=== PATIENT | male | born 1990 | race Caucasian/White ===

== ENCOUNTER 2021-06-19 06:00 | Outpatient (CLI) | payer BC, SELFPAY ==
[2021-06-19 11:20] VITALS: PULSE 120; RESP 40; TEMP 36.9
[2021-06-19 11:30] VITALS: PULSE 120; RESP 40; TEMP 36.9
== END 2021-06-19 06:01 | disposition home or self-care (01) ==
LOC: OPOB 02-15 16:00
PROVIDERS: PCP Nurse Practitioner Family; Visit Provider Pediatrics
DX: R17 Unspecified jaundice (principal)
CPT/HCPCS: 36416

== ENCOUNTER 2022-02-21 19:53 | Emergency (ER) | payer BC, SELFPAY ==
[2022-02-21 20:01] VITALS: BP 146/107; PULSE 106; RESP 14; TEMP 37.2; O2SAT 97; BMI 30.9
--- NOTE | 2022-02-21 20:09 | W.ED.CHESTPA ---
HPI - Chest Pain General: Chief Complaint: Chest Pain Stated Complaint: high blood pressure chest pains Time Seen by Provider: 02/21/22 19:55 PFSH ED PFSH: Medical History (Updated 03/15/21 @ 18:30 by Filippo Bradford MD) Herpes simplex Social History Smoking and tobacco status: never smoked Course Vital Signs: Vital signs: Vital Signs Temperature 98.9 F 02/21/22 20:01 Pulse Rate 106 H 02/21/22 20:01 Respiratory Rate 14 02/21/22 20:01 Blood Pressure 146/107 02/21/22 20:01 Pulse Oximetry 97 02/21/22 20:01 Discharge Plan Discharge Condition: Stable Prescriptions: No Action lisinopril 10 mg tablet 10 mg PO DAILY 0RF Lidocaine Viscous 2 % solution 1 applic mucous membrane Q3H Qty: 100 0RF Referrals: Remea Alan FNP [Primary Care Provider] - Coding Level of Care Code ED [employer] 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
--- NOTE | 2022-02-21 20:10 | ED_ITS ---
HPI - Chest Pain General: Chief Complaint: Chest Pain Stated Complaint: high blood pressure chest pains Time Seen by Provider: 02/21/22 19:55 History of Present Illness: 31-year-old presents with chest pain. States he also had an elevated blood pressure earlier. Reports chest pain is achy central and nonradiating. Denies any nausea or vomiting. Does report tachycardia earlier. Denies any lower extremity pain or swelling. Denies fevers or chills. Denies any radiation to the back. Review of Systems Narrative: - CONSTITUTIONAL: Denies weight loss, fever and chills. - HEENT: Denies changes in vision and hearing. - RESPIRATORY: Denies SOB and cough. - CV: As above - GI: Denies abdominal pain, nausea, vomiting and diarrhea. - : Denies dysuria and urinary frequency. - MSK: Denies myalgia and joint pain. - SKIN: Denies rash and pruritus. - NEUROLOGICAL: Denies headache, weakness, numbness and syncope. - PSYCHIATRIC: Denies suicidal ideation [facility] ED PFS: Medical History (Updated 02/21/22 @ 21:53 by Enoc Coronado MD) Herpes simplex Social History Smoking and tobacco status: never smoked Physical Exam Narrative: EXAM NARRATIVE: - GENERAL: Alert and oriented x 3. No acute distress. Well-nourished. - EYES: EOMI. Anicteric. - HENT: Atraumatic, no C-spine tenderness. Moist mucous membranes. No scleral icterus. No cervical lymphadenopathy. - LUNGS: Clear to auscultation bilaterally. No accessory muscle use. Equal lung sounds bilaterally. No respiratory distress. - CARDIOVASCULAR: Regular tachycardia. No murmur. No JVD. - ABDOMEN: Soft, non-tender and non-distended. Negative CVA tenderness bilaterally, no rebound or guarding, negative Amin sign. No palpable masses. - EXTREMITIES: No edema. Non-tender. - SKIN: No rashes or lesions. Warm. - NEUROLOGIC: No meningismus or focal neurological deficits. CN II-XII grossly intact. - PSYCHIATRIC: Cooperative. Appropriate mood and affect. Course Vital Signs: Vital signs: Vital Signs Temperature 98.9 F 02/21/22 20:01 Pulse Rate 80 02/21/22 21:18 Respiratory Rate 16 02/21/22 21:18 Blood Pressure 142/91 02/21/22 21:18 Pulse Oximetry 94 05/29/22 21:18 MDM - Chest Pain Medical Decision Making [id number] presents with chest pain since yesterday. Physical exam unremarkable. EKG and troponin not revealing sign of acute ischemia or acute abnormality. Initially mildly tachycardic but improved without intervention. D-dimer is negative. X-ray does not reveal pneumothorax or consolidation. Remainder of lab work unremarkable. At this time I believe patient would be safe for discharge and outpatient follow-up. Return precautions provided. Plan was reviewed with the patient who expressed understanding. Questions answered. Patient will follow up with PCP. Patient discharged in stable condition. Lab Data : 02/21/22 20:05 02/21/22 21:15 Radiology Impressions Chest X-Ray 02/21/22 20:10 IMPRESSION: No acute findings. Laboratory Results WBC 10.1 10^3/uL (4.0-10.0) H 02/21/22 20:05 RBC 5.88 10^6/uL (4.1-5.3) H 02/21/22 20:05 Hgb 16.4 g/dL (11.7-16.6) 02/21/22 20:05 Hct 47.2 % (42.0-52.0) 02/21/22 20:05 MCV 80.3 fl (80-94) 02/21/22 20:05 MCH 27.9 pg (28.0-34.0) L 02/21/22 20:05 MCHC 34.7 g/dL (30.0-36.0) 02/21/22 20:05 RDW 12.5 % (12.1-15.1) 02/21/22 20:05 Plt Count 326 10^3/cmm (130-400) 02/21/22 20:05 MPV 8.9 fL (7.4-10.4) 02/21/22 20:05 Neut % (Auto) 53.2 % 02/21/22 20:05 Lymph % (Auto) 33.2 % 02/21/22 20:05 Mcdonough % (Auto) 6.5 % 02/21/22 20:05 Eos % (Auto) 6.1 % 02/21/22 20:05 Baso % (Auto) 0.7 % 02/21/22 20:05 Neut # (Auto) 5.36 10^3/uL (1.8-7.7) 02/21/22 20:05 Lymph # (Auto) 3.3 10^3/uL (0.8-4.8) 02/21/22 20:05 Mcdonough # (Auto) 0.7 10^3/uL (0.2-0.9) 02/21/22 20:05 Eos # (Auto) 0.6 10^3/uL (0.0-0.8) 02/21/22 20:05 Baso # (Auto) 0.1 10^3/uL (0.0-0.1) 02/21/22 20:05 Nucleated RBC % (auto) 0 % 02/21/22 20:05 Nucleated RBCs # 0.0 /100WBC 02/21/22 20:05 D-Dimer 0.34 ug/mIFEU (0-0.59) 02/21/22 20:05 Sodium 138 mmol/L (136-145) 02/21/22 21:15 Potassium 3.7 mmol/L (3.5-5.1) 02/21/22 21:15 Chloride 101 mmol/L (98-107) 02/21/22 21:15 Carbon Dioxide 28 mmol/L (22-29) 02/21/22 21:15 Anion Gap 12.7 (5-19) 02/21/22 21:15 BUN 15 mg/dL (6-20) 02/21/22 21:15 Creatinine 0.9 mg/dL (0.7-1.2) 02/21/22 21:15 GFR Calculation 97.8 mL/min (90-130) 02/21/22 21:15 Glucose 89 mg/dL (65-115) 02/21/22 21:15 Calculated Osmolality 286 mOsm/kg (285-295) 02/21/22 21:15 Calcium 9.0 mg/dL (8.5-10.5) 02/21/22 21:15 Total Bilirubin 0.5 mg/dL (0.15-1.2) 02/21/22 21:15 AST 35 U/L (0-40) 02/21/22 21:15 ALT 66 U/L (0-41) H 02/21/22 21:15 Alkaline Phosphatase 94 IU/L (40-130) 02/21/22 21:15 Troponin T Baseline 6 ng/L (0-15) 02/21/22 20:30 Total Protein 6.9 g/dL (6.6-8.7) 02/21/22 21:15 Albumin 4.6 g/dL (3.5-5.2) 02/21/22 21:15 Globulin 2.3 g/dL (1.3-4.6) 02/21/22 21:15 Lipase 29 U/L (13-60) 02/21/22 21:15 EKG Data EKG 1: Other EKG comments: Sinus tachycardia, rate of 106, no sign of acute ischemia or other acute abnormality. Discharge Plan Discharge Patient Disposition: Home Clinical Impression: Chest pain Condition: Stable Prescriptions: No Action lisinopril 10 mg tablet 10 mg PO DAILY 0RF Lidocaine Viscous 2 % solution 1 applic mucous membrane Q3H Qty: 100 0RF Discharge Orders: Discharge ED (Routine); Ordered 02/21/22 Ordered By: Enoc Coronado Referrals: Reema Alan FNP [Primary Care Provider] - 1-3 days Patient Instructions: Chest Pain (ED), Opioid Safety Coding Level of Care Code ED Barrel Header for Chg Carolyn
--- NOTE | 2022-02-21 20:10 | XRR_ITS ---
PROCEDURE INFORMATION: Exam: XR Chest Exam date and time: 02/21/2022 8:21 PM Age: 31 years old Clinical indication: Sternal or substernal pain; Additional info: Cp TECHNIQUE: Imaging protocol: XR of the chest. Views: 1 view. COMPARISON: No relevant prior studies available. FINDINGS: Lungs: Unremarkable. No consolidation. Pleural spaces: Unremarkable. No pleural effusion. No pneumothorax. Heart/Mediastinum: Unremarkable. No cardiomegaly. Bones/joints: Unremarkable. XR/XR chest 1V portable [id number] IMPRESSION: No acute findings.
--- NOTE | 2022-02-21 20:10 | ECG_ITS ---
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 Measurements Intervals [place] Rate: 106 P: 62 GA: 152 QRS: 67 QRSD: 105 T: 31 QT: 324 QTc: 431 Interpretive Statements SINUS TACHYCARDIA No previous ECG available for comparison Electronically Signed On 02-22-2022 19:42:53 CDT by Wallace Michele M.D. [id number] f
[2022-02-21] MEDS: aspirin 81 mg Chew Tablet 324 MG PO (20:14)
[2022-02-21 20:20] LABS: Basophils # 0.1 10^3/uL (0.0-0.1); Basophils % 0.7 %; Eosinophils # 0.6 10^3/uL (0.0-0.8); Eosinophils % 6.1 %; Hematocrit 47.2 % (42.0-52.0); Hemoglobin 16.4 g/dL (11.7-16.6); Lymphocytes # 3.3 10^3/uL (0.8-4.8); Lymphocytes % 33.2 %; Mean Corpuscular HGB Conc 34.7 g/dL (30.0-36.0); Mean Corpuscular Hemoglobin 27.9 pg (28.0-34.0); Mean Corpuscular Volume 80.3 fl (80-94); Mean Platelet Volume 8.9 fL (7.4-10.4); Monocytes # 0.7 10^3/uL (0.2-0.9); Monocytes % 6.5 %; Neutrophils # 5.36 10^3/uL (1.8-7.7); Neutrophils % 53.2 %; Nucleated Red Blood Cells % 0 %; Platelet Count 326 10^3/cmm (130-400); Red Blood Count 5.88 10^6/uL (4.1-5.3); Red Cell Distribution Width 12.5 % (12.1-15.1); White Blood Count 10.1 10^3/uL (4.0-10.0)
[2022-02-21 20:27] LABS: D Dimer 0.34 ug/mIFEU (0-0.59)
[2022-02-21 20:37] VITALS: BP 133/90; PULSE 93; O2SAT 93
[2022-02-21 20:57] LABS: Troponin(5th) Baseline 6 ng/L (0-15)
[2022-02-21 21:18] VITALS: BP 142/91; PULSE 80; RESP 16; O2SAT 94
[2022-02-21 21:44] LABS: Alanine Aminotransferase 66 U/L (0-41); Albumin Level 4.6 g/dL (3.5-5.2); Alkaline Phosphatase 94 IU/L (40-130); Anion Gap 12.7 (5-19); Aspartate Amino Transferase 35 U/L (0-40); Blood Urea Nitrogen 15 mg/dL (6-20); Carbon Dioxide 28 mmol/L (22-29); Chloride 101 mmol/L (98-107); Globulin 2.3 g/dL (1.3-4.6); Glomerular Filtration Rate 97.8 mL/min (90-130); Glucose 89 mg/dL (65-115); Lipase 29 U/L (13-60); Osmolality Calculated 286 mOsm/kg (285-295); Potassium 3.7 mmol/L (3.5-5.1); Sodium 138 mmol/L (136-145); Total Bilirubin 0.5 mg/dL (0.15-1.2); Total Protein 6.9 g/dL (6.6-8.7)
[2022-02-21 22:19] VITALS: BP 135/83; PULSE 88; RESP 18; O2SAT 94
== END 2022-02-21 22:20 | disposition home or self-care (01) ==
PROVIDERS: Emergency Provider Emergency Medicine; PCP Nurse Practitioner Family
DX: R07.9 Chest pain, unspecified (principal); R00.0 Tachycardia, unspecified
CPT/HCPCS: 71045; 80053; 83690; 84484; 85025; 85378; 93005; 99284

== ENCOUNTER 2023-01-03 20:54 | Emergency (ER) | payer OTHER, BC, SELFPAY ==
[2023-01-03] VITALS (7 sets, daily range): BP systolic 110–134; BP diastolic 84–86; PULSE 83–91; RESP 16–18; TEMP 36.5; O2SAT 97–100
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
[2023-01-03] MEDS: morphine 4 mg/mL SDV 1 mL IVP (21:23)
[2023-01-03] MEDS: ondansetron 2 mg/ML SDV 2 mL 4 MG IVP (21:23)
[2023-01-03] MEDS: iohexol 350 mg/mL 500 mL Btl (per mL) IV (21:38)
--- NOTE | 2023-01-11 13:15 | DCPLANNER ---
online community manager called patient due to no primary care physician - patient declines at this time.
== END 2023-01-03 22:02 | disposition home or self-care (01) ==
PROVIDERS: Emergency Provider Emergency Medicine
DX: S30.811A Abrasion of abdominal wall, initial encounter (principal); V28.09XA Other motorcycle driver injured in noncollision transport accident in nontraffic accident, initial encounter
CPT/HCPCS: 74177; 96374; 96375; 99285; J2270; J2405; Q9967

== ENCOUNTER 2025-02-23 00:17 | Emergency (ER) | payer BC, SELFPAY ==
[2025-02-23 00:21] VITALS: BP 154/103; PULSE 96; RESP 16; TEMP 36.6; O2SAT 99; BMI 30.9
--- NOTE | 2025-02-23 00:42 | CTR_ITS ---
PROCEDURE INFORMATION: Exam: CT Head Without Contrast Exam date and time: 02/23/2025 12:56 AM Age: 34 years old Clinical indication: Pain; Headache; HORNE with dizziness; Additional info: Dizziness with mild confusion and HORNE TECHNIQUE: Imaging protocol: Computed tomography of the head without contrast. Radiation optimization: All CT scans at this facility use at least one of these dose optimization techniques: automated exposure control; mA and/or kV adjustment per patient size (includes targeted exams where dose is matched to clinical indication); or iterative reconstruction. COMPARISON: No relevant prior studies available. RADIATION DOSE METRICS: Total DLP (mGy-cm): 974.98 FINDINGS: Brain: There is no evidence of intracranial hemorrhage. No mass effect or midline shift. No territorial edema. Unremarkable white matter. Cerebral ventricles: The ventricles and sulci are appropriate for the patient's age. Paranasal sinuses: Nodular mucosal thickening of the bilateral frontal, bilateral ethmoid and sphenoid sinuses. There are some opacified ethmoid air cells. The maxillary sinuses are outside of the field of view. Mastoid air cells: The visualized mastoid air cells are well aerated. Bones: Unremarkable. No acute fracture. Soft tissues: Unremarkable. CT/CT head wo con* [id number] IMPRESSION: 1. No acute intracranial findings. 2. Paranasal sinus disease as above.
--- NOTE | 2025-02-23 00:42 | XRR_ITS ---
PROCEDURE INFORMATION: Exam: XR Chest Exam date and time: 02/23/2025 12:49 AM Age: 34 years old Clinical indication: Other: AMS; Additional info: Confusion TECHNIQUE: Imaging protocol: Radiologic exam of the chest. Views: 1 view. COMPARISON: CR XR chest 1V portable [id number] 21/02/2022 20:21 FINDINGS: Lungs: There is incomplete lung expansion and crowding of the vascular markings. There is no consolidation. Pleural spaces: No pleural effusion or pneumothorax. Heart/Mediastinum: The heart and mediastinum are normal in size. Bones/joints: Unremarkable. XR/XR chest 1V portable [id number] IMPRESSION: No acute findings.
--- NOTE | 2025-02-23 00:45 | ECG_ITS ---
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 Measurements Intervals [place] Rate: 103 P: 51 WY: 175 QRS: 41 QRSD: 106 T: 16 QT: 339 QTc: 445 Interpretive Statements SINUS TACHYCARDIA Compared to ECG 02/21/2022 20:01:46 No significant changes Electronically Signed On 02-26-2025 11:44:06 CDT by Wallace Michele M.D. [email or web address] [id number]
--- NOTE | 2025-02-23 00:48 | W.ED.NEUROSD ---
HPI - Neuro Symptoms/Deficit General: Chief Complaint: Neuro Symptoms/Deficit Stated Complaint: Vision is wonky feels jia L side back of head Time Seen by Provider: 02/23/25 00:33 History of Present Illness: 34-year-old male presents to the ER chief complaint of having a feeling of confusion and altered mental status today. Patient Dors having a known history of hypertension however he is not an echo noncompliant with his medications for several years but about 3 years he saw his primary care doctor he was on lisinopril at 1 point time as well as other medications patient does not frequently check his blood pressure was found to be elevated prior to arrival patient reports he feel like the room is spinning and near passing out he denies any recent head injury or trauma he reports it kind of feels like a concussion and also endorses no other associated symptoms patient denies any history of stroke or clotting disorder reporting no chest pain shortness of breath or palpitations or any other associated symptoms. Associated symptoms: Reports headache(s) and vertigo; Deny chest pain, malaise, nausea or vomiting Related Data Home Medications ?Medication ?Instructions ?Recorded ?Confirmed lisinopril 10 mg tablet 10 mg PO DAILY 03/15/21 03/15/21 Previous Rx's ?Medication ?Instructions ?Recorded lidocaine HCl 2 % mucosal solution 1 applic mucous membrane Q3H #100 03/15/21 (Lidocaine Viscous) mL hydrocodone 5 mg-acetaminophen 325 1 tab PO Q6H PRN pain #14 tabs 01/03/23 mg tablet naproxen 500 mg tablet (Naprosyn) 500 mg PO BID PRN pain #20 tabs 01/03/23 ketorolac 10 mg tablet 10 mg PO Q8H PRN pain 1 day #10 02/23/25 tabs lisinopril 10 mg tablet 10 mg PO DAILY #30 tabs 02/23/25 prednisone 20 mg tablet 20 mg PO BID #10 tabs 02/23/25 prochlorperazine maleate 10 mg 10 mg PO BID PRN nausea and 02/23/25 tablet (Compazine) vomiting #14 tabs Allergies Allergy/AdvReac Type Severity Reaction Status Date / Time No Known Allergies Allergy Unverified 03/15/21 18:08 Review of Systems General: Reports: 10 or more systems reviewed and unremarkable except in HPI and below Const: Denies: fever(s), chills, fatigue or malaise Eyes: Reports: change in vision; Denies: blurry vision Card: Denies: chest pain or palpitations Resp: Denies: dyspnea or productive cough GI: Denies: abdominal pain, nausea or vomiting : Denies: flank pain Musc: Denies: extremity pain or extremity swelling Skin/Breast: Denies: rash or pruritus Neuro: Reports: headache(s), lack of coordination, dizziness and vertigo Psych: Denies: anxiety or depression Chinmay/Lymph: Denies: easy bleeding All/Imm: Denies: urticaria, throat swelling or facial swelling PFS ED PFSH: Medical History Herpes simplex Social History Smoking and tobacco/nicotine status: never used tobacco/nicotine Physical Exam Const: COMMON NORMALS: no acute distress, patient oriented x3 and healthy appearing OTHER: Patient appears has had exam no obvious focal neurodeficit appreciated patient is quite hypertensive on the monitor 150s over 1 teens as well as noted to be tachycardic heart rate in the low 100s. HENMT: COMMON NORMALS: normocephalic and atraumatic HEAD & SCALP: normocephalic and atraumatic Eye: COMMON NORMALS: Equal, round and reactive pupils present and EOMs intact bilaterally PUPIL: Yes Equal, round and reactive pupils present Neck/C-Spine: COMMON NORMALS: full ROM, supple and no JVD Lymph: LYMPHATIC: no lymphadenopathy noted Chest: COMMONS NORMALS: normal inspection of the chest and normal palpation of entire chest wall OTHER: No murmurs or bruits appreciated. Resp: COMMON NORMALS: normal respiratory effort, No retractions and clear to auscultation bilaterally EFFORT & INSPECTION: Yes able to speak in complete sentences and Yes symmetric chest movement AUSCULTATION: clear to auscultation bilaterally Cardio: COMMON NORMALS: no JVD, regular rate and regular rhythm RATE: regular rate RHYTHM: regular rhythm GI: COMMON NORMALS: Normal to inspection, nondistended, normoactive bowel sounds present, Soft to palpation and non-tender INSPECTION: Yes normal to inspection PALPATION: Yes Soft to palpation : COMMON NORMALS: Yes no CVA tenderness BLADDER/KIDNEY EXAM: Yes no CVA tenderness Back/Pelvis: COMMON NORMALS: no CVA tenderness Extremity: COMMON NORMALS: normal to inspection and full ROM Neuro: COMMON NORMALS: patient oriented x3, CN's II-XII intact bilaterally, moves all extremities and no focal motor deficits Psych: COMMON NORMALS: mental status grossly normal, Normal thought process present, cooperative and normal affect THOUGHT PROCESS: Normal thought process present Skin: COMMON NORMALS: no rashes or lesions noted GENERAL SKIN EXAM: no rashes or lesions noted Course Vital Signs: Vital signs: Vital Signs Temperature 97.9 F 02/23/25 00:21 Pulse Rate 82 02/23/25 04:04 Respiratory Rate 18 02/23/25 04:04 Blood Pressure 137/92 02/23/25 04:04 Pulse Oximetry 96 02/23/25 04:04 Oxygen Delivery Me thod Room Air 02/23/25 01:08 MDM - Neuro Symptoms/Deficit Medical Decision Making Due to patient's symptoms and condition lab work and imaging will be obtained we will continue to follow. Patient's blood pressure continues to improve with regards to the emerged part where he did complain of increased headache in which a migraine cocktail was provided to him patient CT imaging of the head came back unremarkable as well as chest x-ray and troponins. Patient stable for discharge home will be started him on additional medications for his headache advised patient to start back on his lisinopril as previously prescribed and was to further follow-up primary care in 2 to 3 days and was to return in the interim if any of his symptoms persist or worse. Lab Data 02/23/25 01:18 02/23/25 01:18 Radiology Impressions Chest X-Ray 02/23/25 00:42 IMPRESSION: No acute findings. Head CT 02/23/25 00:42 IMPRESSION: 1. No acute intracranial findings. 2. Paranasal sinus disease as above. Laboratory Results WBC 10.15 10^3/uL (3.29-11.43) 02/23/25 01:18 RBC 5.37 10^6/uL (3.85-5.65) 02/23/25 01:18 Hgb 15.20 g/dL (11.27-16.99) 02/23/25 01:18 Hct 44.7 % (37-53) 02/23/25 01:18 MCV 83.2 fl (82-101) 02/23/25 01:18 MCH 28.3 pg (27-33) 02/23/25 01:18 MCHC 34.0 g/dL (30-55) 02/23/25 01:18 RDW 12.6 % (12.1-15.1) 02/23/25 01:18 Plt Count 295 10^3/cmm (157-399) 02/23/25 01:18 MPV 8.9 fL (7.4-10.4) 02/23/25 01:18 Neut % (Auto) 51.9 % 02/23/25 01:18 Lymph % (Auto) 32.3 % 02/23/25 01:18 Ballard % (Auto) 8.8 % 02/23/25 01:18 Eos % (Auto) 6.1 % 02/23/25 01:18 Baso % (Auto) 0.8 % 02/23/25 01:18 Neut # (Auto) 5.27 10^3/uL (1.8-7.7) 02/23/25 01:18 Lymph # (Auto) 3.3 10^3/uL (0.8-4.8) 02/23/25 01:18 Ballard # (Auto) 0.9 10^3/uL (0.2-0.9) 02/23/25 01:18 Eos # (Auto) 0.6 10^3/uL (0.0-0.8) 02/23/25 01:18 Baso # (Auto) 0.1 10^3/uL (0.0-0.1) 02/23/25 01:18 Nucleated RBC % (auto) 0 % 02/23/25 01:18 Nucleated RBCs # 0.0 /100WBC 02/23/25 01:18 Sodium 137 mmol/L (136-145) 02/23/25 01:18 Potassium 3.3 mmol/L (3.5-5.1) L 02/23/25 01:18 Chloride 101 mmol/L (98-107) 02/23/25 01:18 Carbon Dioxide 25 mmol/L (22-29) 02/23/25 01:18 Anion Gap 14.3 (5-19) 02/23/25 01:18 BUN 11 mg/dL (6-20) 02/23/25 01:18 Creatinine 0.9 mg/dL (0.7-1.2) 02/23/25 01:18 GFR Calculation 96.0 mL/min (90-130) 02/23/25 01:18 Glucose 109 mg/dL (65-115) 02/23/25 01:18 Calculated Osmolality 284 mOsm/kg (285-295) L 02/23/25 01:18 Calcium 8.6 mg/dL (8.5-10.5) 02/23/25 01:18 Total Bilirubin 0.5 mg/dL (0.15-1.2) 02/23/25 01:18 AST 36 U/L (0-40) 02/23/25 01:18 ALT 63 U/L (0-41) H 02/23/25 01:18 Alkaline Phosphatase 89 U/L (40-130) 02/23/25 01:18 Troponin T Baseline < 6 ng/L (0-15) 02/23/25 01:18 Troponin T 120 Minute 7.11 ng/L (0-15) 02/23/25 02:51 Delta Troponin T 1.91905 ABS# (0-10) 02/23/25 02:51 C-Reactive Protein 3.0 mg/L (0.0-4.9) 02/23/25 01:18 NT-Pro-B Natriuret Pep < 36 pg/mL (0-125) 02/23/25 01:18 Total Protein 6.5 g/dL (6.6-8.7) L 02/23/25 01:18 Albumin 4.0 g/dL (3.5-5.2) 02/23/25 01:18 Globulin 2.5 g/dL (1.3-4.6) 02/23/25 01:18 Urine Opiates Screen Negative ng/mL (Negative) 02/23/25 01:18 Ur Barbiturates Screen Negative ng/mL (Negative) 02/23/25 01:18 Ur Phencyclidine Scrn Negative ng/mL (Negative) 02/23/25 01:18 Ur Amphetamines Screen Negative ng/mL (Negative) 02/23/25 01:18 U Benzodiazepines Scrn Negative ng/mL (Negative) 02/23/25 01:18 Urine Cocaine Screen Negative ng/mL (Negative) 05/31/25 01:18 U Marijuana (THC) Screen Negative ng/mL (Negative) 02/23/25 01:18 All radiology interpretation(s) finalized by discharge Discharge Plan Discharge Patient Disposition: Home Clinical Impression: Headache, Hypertension Condition: Stable Prescriptions: New lisinopril 10 mg tablet 10 mg PO DAILY Qty: 30 0RF prednisone 20 mg tablet 20 mg PO BID Qty: 10 0RF prochlorperazine maleate [Compazine] 10 mg tablet 10 mg PO BID PRN (Reason: nausea and vomiting) Qty: 14 0RF ketorolac 10 mg tablet 10 mg PO Q8H PRN (Reason: pain) 1 Days Qty: 10 0RF No Action lisinopril 10 mg tablet 10 mg PO DAILY Lidocaine Viscous 2 % solution 1 applic mucous membrane Q3H Qty: 100 0RF hydrocodone-acetaminophen 5-325 mg tablet 1 tab PO Q6H PRN (Reason: pain) Qty: 14 0RF Naprosyn 500 mg tablet 500 mg PO BID PRN (Reason: pain) Qty: 20 0RF Discharge Orders: Discharge ED (Routine); Ordered 02/23/25 Ordered By: Rajesh Dee Discharge Diet: Advance as tolerated Discharge Activity: Increase activity as tolerated Patient Instructions: Acute Headache (ED), Hypertension (ED) Activity Restrictions/Additional Instructions: Take meds as prescribed please further follow-up with primary care in 2 to 3 days and was to return the interim if any of your symptoms persist or worse. Print Language: Sierra Leonean Coding Level of Care Code ED Granulator Machine Operator for Josie Leon
[2025-02-23 01:08] VITALS: BP 128/98; PULSE 104; RESP 17; O2SAT 96
[2025-02-23 01:27] LABS: Basophils # 0.1 10^3/uL (0.0-0.1); Basophils % 0.8 %; Eosinophils # 0.6 10^3/uL (0.0-0.8); Eosinophils % 6.1 %; Hematocrit 44.7 % (37-53); Lymphocytes # 3.3 10^3/uL (0.8-4.8); Lymphocytes % 32.3 %; Mean Corpuscular Hemoglobin 28.3 pg (27-33); Mean Corpuscular Volume 83.2 fl (82-101); Mean Platelet Volume 8.9 fL (7.4-10.4); Monocytes # 0.9 10^3/uL (0.2-0.9); Monocytes % 8.8 %; Neutrophils # 5.27 10^3/uL (1.8-7.7); Neutrophils % 51.9 %; Nucleated Red Blood Cells % 0 %; Platelet Count 295 10^3/cmm (157-399); Red Blood Count 5.37 10^6/uL (3.85-5.65); Red Cell Distribution Width 12.6 % (12.1-15.1); White Blood Count 10.15 10^3/uL (3.29-11.43)
[2025-02-23] MEDS: sodium chloride 0.9% 500 ML IV ×2 (01:27→02:41)
[2025-02-23 01:47] LABS: Troponin(5th) Baseline < 6 ng/L (0-15)
[2025-02-23 01:56] LABS: Alanine Aminotransferase 63 U/L (0-41); Alkaline Phosphatase 89 U/L (40-130); Anion Gap 14.3 (5-19); Aspartate Amino Transferase 36 U/L (0-40); Blood Urea Nitrogen 11 mg/dL (6-20); Calcium 8.6 mg/dL (8.5-10.5); Carbon Dioxide 25 mmol/L (22-29); Chloride 101 mmol/L (98-107); Creatinine Clr Calc Pharmacy 110.4749; Globulin 2.5 g/dL (1.3-4.6); Glucose 109 mg/dL (65-115); NT Pro B Type Natriuretic Pept < 36 pg/mL (0-125); Osmolality Calculated 284 mOsm/kg (285-295); Potassium 3.3 mmol/L (3.5-5.1); Sodium 137 mmol/L (136-145); Total Bilirubin 0.5 mg/dL (0.15-1.2); Total Protein 6.5 g/dL (6.6-8.7)
[2025-02-23 02:08] LABS: Amphetamines Screen Urine Negative (Negative); Barbiturates Screen Urine Negative (Negative); Benzodiazepines Screen Urine Negative (Negative); Cocaine Screen Urine Negative (Negative); Opiate Screen Urine Negative (Negative); PCP Screen Urine Negative (Negative); THC Screen Urine Negative (Negative)
[2025-02-23] MEDS: ketorolac 30 mg/mL INJ IVP (02:37)
[2025-02-23 03:00] VITALS: BP 132/92; PULSE 84; RESP 19; O2SAT 99
[2025-02-23 03:20] LABS: Troponin 5 2HR 7.11 ng/L (0-15); Troponin 5 2HR Delta 1.11001 ABS# (0-10)
[2025-02-23 04:04] VITALS: BP 137/92; PULSE 82; RESP 18; O2SAT 96
[2025-02-23] MEDS: diphenhydrAMINE 50 mg/mL SDV 1mL 25 MG IVP (04:13)
[2025-02-23] MEDS: prochlorperazine 10 mg/2 mL Inj IVP (04:15)
[2025-02-23] MEDS: dexamethasone 10 mg/mL INJ IVP (04:16)
[2025-02-23 05:18] VITALS: BP 124/94; PULSE 92; O2SAT 97
== END 2025-02-23 04:58 | disposition home or self-care (01) ==
PROVIDERS: Emergency Provider Emergency Medicine
DX: R51.9 Headache, unspecified (principal); I10 Essential (primary) hypertension
CPT/HCPCS: 36415; 70450; 71045; 80053; 80306; 83880; 84484; 85025; 86140; 93005; 96374; 96375; 99285; J0780; J1100; J1200; J1885; J7040

== ENCOUNTER 2025-03-17 20:05 | Emergency (ER) | payer SELFPAY ==
[2025-03-17 20:09] VITALS: BP 140/89; PULSE 95; RESP 19; TEMP 36.7; O2SAT 97; BMI 32.2
--- NOTE | 2025-03-17 20:38 | XRR_ITS ---
PROCEDURE INFORMATION: Exam: XR Chest Exam date and time: 03/17/2025 8:51 PM Age: 34 years old Clinical indication: Shortness of breath; Additional info: SOB TECHNIQUE: Imaging protocol: Radiologic exam of the chest. Views: 1 view. COMPARISON: CR (CHEST, ) 02/23/2025 12:49 AM FINDINGS: Lungs: Unremarkable. No consolidation. Pleural spaces: Unremarkable. No pleural effusion. No pneumothorax. Heart/Mediastinum: Unremarkable. No cardiomegaly. Bones/joints: Unremarkable. XR/XR chest 1V portable [id number] IMPRESSION: No acute findings.
--- NOTE | 2025-03-17 20:38 | XRR_ITS ---
PROCEDURE INFORMATION: Exam: XR Soft Tissue Neck Exam date and time: 03/17/2025 8:53 PM Age: 34 years old Clinical indication: Other: Swelling; Additional info: Neck swelling SOB TECHNIQUE: Imaging protocol: Radiologic exam of the soft tissues of the neck. COMPARISON: CR (CHEST, ) 03/17/2025 8:51 PM FINDINGS: Airway: Normal. No abnormal narrowing. Soft tissues: Normal. Normal epiglottis. Bones/joints: Unremarkable. XR/XR soft tissue neck [id number] IMPRESSION: No acute findings per radiographic criteria, consider CT neck with contrast for further evaluation if there is continued clinical concern for subtle findings of airway compromise that is beyond the capability of radiographic imaging.
--- NOTE | 2025-03-17 21:09 | W.ED.SOB ---
HPI - SOB/Dyspnea General: Chief Complaint: Shortness of Breath/Dyspnea Stated Complaint: trouble breathing Time Seen by Provider: 03/17/25 20:24 History of Present Illness: HPI Narrative: 34-year-old male patient with a cough, congestion, shortness of breath and sore throat for 2 weeks. He was seen in the clinic and placed on prednisone and antibiotics, amoxicillin. He has done with prednisone, and not improved he says. He has used his daughter's inhaler infrequently he is no longer running fever. He has had episodes of posttussive emesis infrequently. His neck feels tight he says. Related Data Home Medications ?Medication ?Instructions ?Recorded ?Confirmed lisinopril 10 mg tablet 10 mg PO DAILY 03/15/21 03/15/21 Previous Rx's ?Medication ?Instructions ?Recorded lidocaine HCl 2 % mucosal solution 1 applic mucous membrane Q3H #100 03/15/21 (Lidocaine Viscous) mL hydrocodone 5 mg-acetaminophen 325 1 tab PO Q6H PRN pain #14 tabs 01/03/23 mg tablet naproxen 500 mg tablet (Naprosyn) 500 mg PO BID PRN pain #20 tabs 01/03/23 lisinopril 10 mg tablet 10 mg PO DAILY #30 tabs 02/23/25 prednisone 20 mg tablet 20 mg PO BID #10 tabs 02/23/25 prochlorperazine maleate 10 mg 10 mg PO BID PRN nausea and 02/23/25 tablet (Compazine) vomiting #14 tabs albuterol sulfate 2.5 mg/0.5 mL 2.5 mg (0.5 mL) inhalation QID PRN 03/17/25 solution for nebulization shortness of breath or wheezing #30 ea doxycycline hyclate 100 mg tablet 100 mg PO BID 7 days #14 tabs 03/17/25 methylprednisolone 4 mg tablets in See Rx Instructions PO .COMPLEX 03/17/25 a dose pack (Medrol (Krish)) #21 ea Allergies Allergy/AdvReac Type Severity Reaction Status Date / Time No Known Allergies Allergy Unverified 03/15/21 18:08 [facility] ED PFS: Medical History Herpes simplex Social History Smoking and tobacco/nicotine status: never used tobacco/nicotine Physical Exam Const: COMMON NORMALS: no acute distress GENERAL APPEARANCE: cooperative; not ill appearing and not frail appearing HENMT: COMMON NORMALS: normocephalic, atraumatic and Normal external nose present HEAD & SCALP: normocephalic and atraumatic FACE & SINUS: normal facial exam and face symmetric; no erythema and no edema NOSE: Normal external nose present; no Nasal discharge present MOUTH: Normal oral and palatal mucosa present and tongue normal THROAT: tonsils not abnormal Eye: COMMON NORMALS: Equal, round and reactive pupils present and EOMs intact bilaterally PUPIL: Yes Equal, round and reactive pupils present Neck/C-Spine: GENERAL: Yes trachea midline OTHER: Lymphadenopathy present on the left Chest: CHEST: Yes Symmetrical chest wall rise Resp: COMMON NORMALS: normal respiratory effort, No retractions, No use of accessory muscles and clear to auscultation bilaterally AUSCULTATION: clear to auscultation bilaterally Cardio: COMMON NORMALS: regular rate and regular rhythm RATE: regular rate RHYTHM: regular rhythm GI: COMMON NORMALS: Normal to inspection, nondistended, normoactive bowel sounds present Extremity: COMMON NORMALS: no pedal edema Neuro: ARIADNE COMA SCALE: document GCS findings Ariadne coma scale eye opening: Spontaneous [place] coma scale verbal response: Orientated Ariadne coma scale motor response: Obey commands [place] coma scale total score: 15 SENSORY EXAM: Yes extremities (intact) Psych: COMMON NORMALS: speech normal SPEECH: Yes normal speech Skin: COMMON NORMALS: no rashes or lesions noted GENERAL SKIN EXAM: no rashes or lesions noted Course Vital Signs: Vital signs: Vital Signs Temperature 98.0 F 03/17/25 20:09 Pulse Rate 92 03/17/25 22:50 Respiratory Rate 16 03/17/25 22:50 Blood Pressure 134/78 03/17/25 22:50 Pulse Oximetry 100 03/17/25 22:50 Oxygen Delivery Me thod Room Air 03/17/25 22:05 MDM - SOB/Dyspnea Medical Decision Making 34-year-old male patient with a history of 2 weeks of cough, gagging sensation with choking sensation at night. Vitals are normal. White blood cell count is 14.6. No left shift. This is likely use of prednisone. BMP is normal. Chest x-ray is nonacute. Soft tissue neck x-ray is nonacute. Swabs for flu RSV and COVID-19 are negative. He is prescribed lisinopril but has not been taking it for over 2 weeks. This is likely not a cause. Will switch antibiotics to cover atypical organisms. Albuterol. He has a nebulizer machine at home. Follow-up as an outpatient. Have asked case management to make him a primary care follow-up appointment. Lab Data 03/17/25 20:50 03/17/25 20:50 Labs/Radiology: Radiology Impressions Chest X-Ray 03/17/25 20:38 IMPRESSION: No acute findings. Soft Tissue Neck X-Ray 03/17/25 20:38 IMPRESSION: No acute findings per radiographic criteria, consider CT neck with contrast for further evaluation if there is continued clinical concern for subtle findings of airway compromise that is beyond the capability of radiographic imaging. Laboratory Results WBC 14.63 10^3/uL (3.29-11.43) H 03/17/25 20:50 RBC 5.70 10^6/uL (3.85-5.65) H 03/17/25 20:50 Hgb 16.00 g/dL (11.27-16.99) 03/17/25 20:50 Hct 47.6 % (37-53) 03/17/25 20:50 MCV 83.5 fl (82-101) 03/17/25 20:50 MCH 28.1 pg (27-33) 03/17/25 20:50 MCHC 33.6 g/dL (30-55) 03/17/25 20:50 RDW 12.7 % (12.1-15.1) 03/17/25 20:50 Plt Count 358 10^3/cmm (157-399) 03/17/25 20:50 MPV 8.6 fL (7.4-10.4) 03/17/25 20:50 Neut % (Auto) 61.6 % 03/17/25 20:50 Lymph % (Auto) 25.2 % 03/17/25 20:50 Benson % (Auto) 9.0 % 03/17/25 20:50 Eos % (Auto) 2.7 % 03/17/25 20:50 Baso % (Auto) 0.7 % 03/17/25 20:50 Neut # (Auto) 9.01 10^3/uL (1.8-7.7) H 03/17/25 20:50 Lymph # (Auto) 3.7 10^3/uL (0.8-4.8) 03/17/25 20:50 Benson # (Auto) 1.3 10^3/uL (0.2-0.9) H 03/17/25 20:50 Eos # (Auto) 0.4 10^3/uL (0.0-0.8) 03/17/25 20:50 Baso # (Auto) 0.1 10^3/uL (0.0-0.1) 03/17/25 20:50 Nucleated RBC % (auto) 0 % 03/17/25 20:50 Nucleated RBCs # 0.0 /100WBC 03/17/25 20:50 Sodium 141 mmol/L (136-145) 03/17/25 20:50 Potassium 3.9 mmol/L (3.5-5.1) 03/17/25 20:50 Chloride 102 mmol/L (98-107) 03/17/25 20:50 Carbon Dioxide 26 mmol/L (22-29) 03/17/25 20:50 Anion Gap 16.9 (5-19) 03/17/25 20:50 BUN 16 mg/dL (6-20) 03/17/25 20:50 Creatinine 0.9 mg/dL (0.7-1.2) 03/17/25 20:50 GFR Calculation 96.0 mL/min (90-130) 03/17/25 20:50 Glucose 79 mg/dL (65-115) 03/17/25 20:50 Calculated Osmolality 292 mOsm/kg (285-295) 03/17/25 20:50 Calcium 9.7 mg/dL (8.5-10.5) 03/17/25 20:50 Total Bilirubin 0.5 mg/dL (0.15-1.2) 03/17/25 20:50 AST 29 U/L (0-40) 03/17/25 20:50 ALT 75 U/L (0-41) H 03/17/25 20:50 Alkaline Phosphatase 97 U/L (40-130) 03/17/25 20:50 Total Protein 7.3 g/dL (6.6-8.7) 03/17/25 20:50 Albumin 4.4 g/dL (3.5-5.2) 03/17/25 20:50 Globulin 2.9 g/dL (1.3-4.6) 03/17/25 20:50 Influenza A (PCR) Negative (Negative) 03/17/25 20:50 Influenza Type B (PCR) Negative (Negative) 03/17/25 20:50 RSV (PCR) Negative (Negative) 03/17/25 20:50 SARS-CoV-2 (PCR) Negative (Negative) 03/17/25 20:50 All radiology interpretation(s) finalized by discharge Discharge Plan Discharge Patient Disposition: Home Clinical Impression: Acute bronchitis Condition: Stable Prescriptions: New methylprednisolone [Medrol (Krish)] 4 mg tablets,dose pack See Rx Instructions .ROUTE .COMPLEX Qty: 21 0RF Rx Instructions: orally per package directions doxycycline hyclate 100 mg tablet 100 mg PO BID 7 Days Qty: 14 0RF albuterol sulfate 2.5 mg/0.5 mL solution for nebulization 2.5 mg inhalation QID PRN (Reason: shortness of breath or wheezing) Qty: 30 0RF No Action lisinopril 10 mg tablet 10 mg PO DAILY Lidocaine Viscous 2 % solution 1 applic mucous membrane Q3H Qty: 100 0RF hydrocodone-acetaminophen 5-325 mg tablet 1 tab PO Q6H PRN (Reason: pain) Qty: 14 0RF Naprosyn 500 mg tablet 500 mg PO BID PRN (Reason: pain) Qty: 20 0RF lisinopril 10 mg tablet 10 mg PO DAILY Qty: 30 0RF prednisone 20 mg tablet 20 mg PO BID Qty: 10 0RF prochlorperazine maleate [Compazine] 10 mg tablet 10 mg PO BID PRN (Reason: nausea and vomiting) Qty: 14 0RF Discharge Orders: Discharge ED (Routine); Ordered 03/17/25 Ordered By: Roshan Rice Patient Instructions: Acute Bronchitis (ED), Opioid Safety, Pain Management Activity Restrictions/Additional Instructions: Medication as directed. Stop the previous antibiotic you are on in favor of this 1. Use the nebulizer every 4 hours while awake for the next 48 hours whether you feel you needed or not, then as needed following that. Case management will call you with a follow-up primary care appointment. Print Language: Frisian Coding Level of Care Code ED Hoof Trimmer for Josie Leon
[2025-03-17 21:18] LABS: Basophils # 0.1 10^3/uL (0.0-0.1); Basophils % 0.7 %; Eosinophils # 0.4 10^3/uL (0.0-0.8); Eosinophils % 2.7 %; Hematocrit 47.6 % (37-53); Lymphocytes # 3.7 10^3/uL (0.8-4.8); Lymphocytes % 25.2 %; Mean Corpuscular HGB Conc 33.6 g/dL (30-55); Mean Corpuscular Hemoglobin 28.1 pg (27-33); Mean Corpuscular Volume 83.5 fl (82-101); Mean Platelet Volume 8.6 fL (7.4-10.4); Monocytes # 1.3 10^3/uL (0.2-0.9); Neutrophils # 9.01 10^3/uL (1.8-7.7); Neutrophils % 61.6 %; Nucleated Red Blood Cells % 0 %; Platelet Count 358 10^3/cmm (157-399); Red Cell Distribution Width 12.7 % (12.1-15.1); White Blood Count 14.63 10^3/uL (3.29-11.43)
[2025-03-17 21:35] LABS: Alanine Aminotransferase 75 U/L (0-41); Albumin Level 4.4 g/dL (3.5-5.2); Alkaline Phosphatase 97 U/L (40-130); Anion Gap 16.9 (5-19); Aspartate Amino Transferase 29 U/L (0-40); Blood Urea Nitrogen 16 mg/dL (6-20); Calcium 9.7 mg/dL (8.5-10.5); Carbon Dioxide 26 mmol/L (22-29); Chloride 102 mmol/L (98-107); Creatinine Clr Calc Pharmacy 112.7681; Globulin 2.9 g/dL (1.3-4.6); Glucose 79 mg/dL (65-115); Osmolality Calculated 292 mOsm/kg (285-295); Potassium 3.9 mmol/L (3.5-5.1); Sodium 141 mmol/L (136-145); Total Bilirubin 0.5 mg/dL (0.15-1.2); Total Protein 7.3 g/dL (6.6-8.7)
[2025-03-17 21:56] LABS: Influenza A NEGATIVE (Negative); Influenza B NEGATIVE (Negative); Respiratory Syncytial Virus Ce NEGATIVE (Negative); SARS-CoV-2 PCR NEGATIVE (Negative)
[2025-03-17] MEDS: ipratropium-albuterol 3 mL Neb INHALATION (22:04)
[2025-03-17 22:05] VITALS: PULSE 91; RESP 18; O2SAT 94
[2025-03-17 22:13] VITALS: PULSE 100
[2025-03-17] MEDS: dexamethasone 4 mg Tablet 10 MG PO (22:41)
[2025-03-17] MEDS: doxycycline 100 mg Tablet PO (22:43)
[2025-03-17] MEDS: LORazepam 1 mg Tablet PO (22:43)
[2025-03-17 22:50] VITALS: BP 134/78; PULSE 92; RESP 16; O2SAT 100
--- NOTE | 2025-03-19 08:39 | DCPLANNER ---
Message sent to clinic to establish PCP for follow up
== END 2025-03-17 22:50 | disposition home or self-care (01) ==
PROVIDERS: Emergency Provider Emergency Medicine
DX: J20.9 Acute bronchitis, unspecified (principal); Z11.52 Encounter for screening for COVID-19
CPT/HCPCS: 70360; 71045; 80053; 85025; 87637; 94640; 99284; J8540; J9999